=== PATIENT | female | born 1965 | race Caucasian/White ===

== ENCOUNTER 2016-06-28 08:21 | Emergency (ER) | payer BC ==
--- NOTE | 2016-06-28 08:42 | ED ---
Fall HPI - General Chief Complaint: Fall Stated Complaint: back pain Time Seen by Provider: 06/28/16 08:27 Source: patient Mode of arrival: EMS Limitations: no limitations - History of Present Illness Initial Comments: This patient is a 51-year-old woman who presents to be evaluated after she had had a fall. This occurred yesterday in the afternoon. The patient was carrying laundry down the stairs and tripped over a cat. She fell landing on the stairs and then slid down a number stairs. She is complaining of pain to the low back and right hip area. MD Complaint: fall -: hour(s) Place Fall Occurred: home Loss of Consciousness: none Symptoms Prior to Fall: none - Related Data Previous Rx's Medication Instructions Recorded Ibuprofen [Motrin] 600 mg PO Q8HR PRN #20 tab 06/28/16 Methocarbamol [Robaxin-750] 750 mg PO TID PRN #30 tablet 06/28/16 traMADol HCl [Ultram] 50 mg PO Q6H PRN #20 tab 06/28/16 Allergies Allergy/AdvReac Type Severity Reaction Status Date / Time Latex, Natural Rubber Allergy Anaphylaxis Verified 06/28/16 08:35 neomycin Allergy Unknown Verified 06/28/16 08:35 Penicillins Allergy Unknown Verified 06/28/16 08:35 Review of Systems ROS Statement: Those systems with pertinent positive or pertinent negative responses have been documented in the HPI. ROS Other: All systems not noted in ROS Statement are negative. Constitutional: Denies: fever, chills Eyes: Denies: vision change ENT: Denies: ear pain, hearing loss, epistaxis Respiratory: Denies: dyspnea Cardiovascular: Denies: chest pain, syncope Gastrointestinal: Denies: abdominal pain, vomiting Genitourinary: Denies: hematuria Musculoskeletal: Reports: as per HPI, back pain, arthralgia Neurological: Denies: headache, weakness, numbness Past Medical History Additional Past Medical History / Comment(s): migraines History of Any Multi-Drug Resistant Organisms: None Reported Additional Past Surgical History / Comment(s): c/s, deviated septum repair Past Psychological History: No Psychological Hx Reported Smoking Status: Current every day smoker Past Alcohol Use History: Rare Past Drug Use History: None Reported General Exam Limitations: no limitations General appearance: alert, in no apparent distress Head exam: Present: atraumatic, normocephalic Eye exam: Present: normal appearance. Absent: scleral icterus, conjunctival injection Neck exam: Present: normal inspection, full ROM. Absent: tenderness Respiratory exam: Present: normal lung sounds bilaterally. Absent: respiratory distress, wheezes, rales, rhonchi, stridor, chest wall tenderness Cardiovascular Exam: Present: regular rate, normal rhythm, normal heart sounds. Absent: systolic murmur, diastolic murmur, rubs, gallop GI/Abdominal exam: Present: soft. Absent: distended, tenderness, guarding, rebound Extremities exam: Present: tenderness, normal capillary refill. Absent: pedal edema, joint swelling, calf tenderness Neurological exam: Present: alert, oriented X3. Absent: motor sensory deficit Skin exam: Present: warm, dry, intact, normal color. Absent: rash Course Vital Signs 06/28/16 06/28/16 08:29 09:55 Temperature 97 F L 97.1 F L Pulse Rate 52 L 50 L Respiratory 16 16 Rate Blood Pressure 113/61 90/53 O2 Sat by Pulse 99 100 Oximetry Disposition Clinical Impression: Fall, Back injury, Lumbar radiculopathy Disposition: HOME SELF-CARE Condition: Fair Instructions: Lumbar Radiculopathy (ED) Prescriptions: Ibuprofen [Motrin] 600 mg PO Q8HR PRN #20 tab PRN Reason: Pain Methocarbamol [Robaxin-750] 750 mg PO TID PRN #30 tablet PRN Reason: pain traMADol HCl [Ultram] 50 mg PO Q6H PRN #20 tab PRN Reason: Pain Referrals: Josias Capps MD [Primary Care Provider] - 1-2 days Roderick Velasco DO [Doctor of Osteopathic Medicine] - 1-2 days
[2016-06-28 08:49] VITALS: RESP 16
--- NOTE | 2016-06-28 09:11 | XR ---
EXAMINATION TYPE: 5 views lumbar spine. AP view pelvis. 2 views right femur. DATE OF EXAM: 06/28/2016 9:03 AM COMPARISON: NONE HISTORY: 51-year-old female with pain after fall FINDINGS: Lumbar spine: Slight rightward truncal shift may be positional or due to muscle spasm. There are 5 lumbar-type vert ebral bodies. No pars interarticularis defect. Minimal disc interspace narrowing at L5-S1. Vertebral body heights are preserved and alignment is maintained. Pelvis: Mild degenerative spurring at both hips with relative preservation of hip joint space. No acute fract ure, subluxation, or dislocation. Right femur: No acute fracture identified. No significant soft tissue abnormality seen. IMPRESSION: 1. Lumbar spine: Some rightward truncal shift could be positional or due to muscle spasm. No vertebra l compression collapse or malalignment. 2. Pelvis: Mild degenerative spurring at the hips. No acute osseous abnormality seen. 3. Right femur: No acute osseous abnormality seen.
[2016-06-28 09:55] VITALS: BP 90/53; PULSE 50; TEMP 97.1
[2016-06-28] MEDS ORDERED: MORPHINE SULFATE 4 MG/ML SYRINGE IV STA (10:00)
[2016-06-28] MEDS ORDERED: traMADol 50 MG TAB PO STA (10:55)
== END 2016-06-28 12:04 | disposition home or self-care (01) ==
LOC: EC 08:21
DX: M54.16 Radiculopathy, lumbar region (principal); Z88.0 Allergy status to penicillin; Z88.1 Allergy status to other antibiotic agents; Z91.040 Latex allergy status; F17.200 Nicotine dependence, unspecified, uncomplicated; W01.198A Fall on same level from slipping, tripping and stumbling with subsequent striking against other object, initial encounter; Y93.E2 Activity, laundry
CPT/HCPCS: 96374; 99284; 72110; 72170; 73552; J2270

== ENCOUNTER → 2016-11-24 | Outpatient (CLI) | payer BC ==
--- NOTE | 2016-11-24 10:43 | USB ---
Reason for exam: follow-up at short interval from prior study. History: Patient had first child at age 36. Family history of breast cancer in maternal grandmother and breast cancer in paternal grandmother. Physical Findings: Nurse did not find any significant physical abnormalities on exam. US Breast LT Left breast ultrasound includes all four quadrants, the retroareolar region and axilla. Finding demonstrates a 8mm cystic lesion at 12 o'clock, a 4mm small cyst cluster at 8 o'clock and a 16 x 7 x 13mm cystic lesion at 11 o'clock, bilobed previously measuring 1.8 x 0.8 x 1.1cm, some echoes remain within one of the cystic components, debris is favored and this can be reassessed in 5 months. These results were verbally communicated with the patient and result sheet given to the patient on 11/24/16. ASSESSMENT: Probably benign, BI-RAD 3 RECOMMENDATION: Follow-up diagnostic mammogram of both breasts in 5 months. Ultrasound of the left breast in 5 months. Back on schedule for April 2017.
== END | disposition home or self-care (01) ==
LOC: RADUSWWP 09:51
PROVIDERS: ATTEND Obstetrics & Gynecology
DX: R92.8 Other abnormal and inconclusive findings on diagnostic imaging of breast (principal)

== ENCOUNTER → 2017-07-30 | Outpatient (CLI) | payer BC ==
--- NOTE | 2017-07-30 11:20 | MM ---
Reason for exam: additional evaluation requested from prior study. Last mammogram was performed 1 year and 3 months ago. History: Patient had first child at age 36. Family history of breast cancer in maternal grandmother and breast cancer in paternal grandmother. Physical Findings: Nurse Summary: 1 x 1cm nodule in the left breast at 12 o'clock (nurse ts). MG Diagnostic Mammo w CAD BARON Bilateral CC and MLO view(s) were taken. Prior study comparison: April 23, 2016, bilateral MG screening mammo w CAD. April 13, 2011, bilateral digital screening mammo w/CAD. The breast tissue is heterogeneously dense. This may lower the sensitivity of mammography. No suspicious calcifications are seen. Left breast mass seen previously has diminished in size. No significant new findings when compared with previous films. These results were verbally communicated with the patient and result sheet given to the patient on 07/30/17. ASSESSMENT: Incomplete: need additional imaging evaluation, BI-RAD 0 RECOMMENDATION: Ultrasound of the left breast.
--- NOTE | 2017-07-30 11:22 | USB ---
Reason for exam: additional evaluation requested from abnormal screening. History: Patient had first child at age 36. Family history of breast cancer in maternal grandmother and breast cancer in paternal grandmother. US Breast LT Left breast ultrasound includes all four quadrants, the retroareolar region and axilla. Finding demonstrates a 0.6 x 0.5 x 0.7cm cystic lesion at 12 o'clock, a 0.6 x 0.4 x 0.6cm cystic cluster at 8 o'clock, a 0.7 x 0.4 x 0.5cm possible node at 10 o'clock and a 1.2 x 0.7 x 1.5cm cystic cluster at 11 o'clock. These results were verbally communicated with the patient and result sheet given to the patient on 07/30/17. ASSESSMENT: Probably benign, BI-RAD 3 RECOMMENDATION: Ultrasound of the left breast in 6 months.
== END | disposition home or self-care (01) ==
LOC: RADMAMWWP 09:45
PROVIDERS: ATTEND Obstetrics & Gynecology
DX: R92.8 Other abnormal and inconclusive findings on diagnostic imaging of breast (principal)
CPT/HCPCS: 77066

== ENCOUNTER → 2018-06-08 | Outpatient (CLI) | payer BC ==
--- NOTE | 2018-06-09 09:00 | USB ---
Reason for exam: follow-up at short interval from prior study. History: Patient had first child at age 36. Family history of breast cancer in maternal grandmother and breast cancer in paternal grandmother. Physical Findings: Nurse Summary: bilateral nodularities, movable (nurse mj). US Breast LT Left complete breast ultrasound includes all four quadrants, the retroareolar region and axilla. Finding demonstrates a 6 x 6mm oval, cystic lesion at 12 o'clock, a 5 x 4 x 5mm cystic cluster at 8 o'clock, a 1.2 x 0.3 x 0.3cm cystic cluster at 10 o'clock and a 1.4 x 0.6 x 1.2cm cystic cluster at 11 o'clock. Multiple cystic areas visualized. Findings appear stable. These results were verbally communicated with the patient and result sheet given to the patient on 06/08/18. ASSESSMENT: Benign, BI-RAD 2 RECOMMENDATION: Routine screening mammogram of both breasts in 2 months. Back on schedule.
== END | disposition home or self-care (01) ==
LOC: RADUSWWP 15:34
PROVIDERS: ATTEND Obstetrics & Gynecology
DX: R92.8 Other abnormal and inconclusive findings on diagnostic imaging of breast (principal)

== ENCOUNTER → 2019-04-17 | Outpatient (CLI) | payer BC ==
--- NOTE | 2019-04-18 08:56 | MM ---
Reason for exam: screening (asymptomatic). Last mammogram was performed 1 year and 9 months ago. History: Patient had first child at age 36. Family history of breast cancer in maternal grandmother and breast cancer in paternal grandmother. Physical Findings: A clinical breast exam by your physician is recommended on an annual basis and results should be correlated with mammographic findings. MG Screening Mammo w CAD Bilateral CC and MLO view(s) were taken. Prior study comparison: July 30, 2017, bilateral MG diagnostic mammo w CAD [facility]. April 23, 2016, bilateral MG screening mammo w CAD. The breast tissue is heterogeneously dense. This may lower the sensitivity of mammography. There is no discrete abnormality. ASSESSMENT: Negative, BI-RAD 1 RECOMMENDATION: Routine screening mammogram of both breasts in 1 year.
== END | disposition home or self-care (01) ==
LOC: RADMAMWWP 16:39
PROVIDERS: ATTEND Obstetrics & Gynecology
DX: Z12.31 Encounter for screening mammogram for malignant neoplasm of breast (principal); Z80.3 Family history of malignant neoplasm of breast
CPT/HCPCS: 77067

== ENCOUNTER → 2021-01-21 | Outpatient (CLI) | payer BC ==
--- NOTE | 2021-01-23 12:25 | MM ---
Reason for exam: screening (asymptomatic). Last mammogram was performed 1 year and 9 months ago. History: Patient had first child at age 36. Family history of breast cancer in maternal grandmother and breast cancer in paternal grandmother. Taking estrogen. Taking progesterone. Physical Findings: A clinical breast exam by your physician is recommended on an annual basis and results should be correlated with mammographic findings. MG Screening Mammo w CAD Bilateral CC and MLO view(s) were taken. Prior study comparison: April 17, 2019, bilateral MG screening mammo w CAD. June 08, 2018, left breast US breast LT. July 30, 2017, bilateral MG diagnostic mammo w CAD [facility]. April 23, 2016, bilateral MG screening mammo w CAD. The breast tissue is heterogeneously dense. This may lower the sensitivity of mammography. Superior posterior right MLO asymmetric density is more defined. ASSESSMENT: Incomplete: need additional imaging evaluation, BI-RAD 0 RECOMMENDATION: Special view mammogram of the right breast. (3D) If lesion persists on supplemental views, image directed ultrasound is recommended. [facility] will attempt to contact patient to return for supplemental views and ultrasound if indicated.
== END | disposition home or self-care (01) ==
LOC: RADMAMWWP 16:44
PROVIDERS: ATTEND Obstetrics & Gynecology
DX: Z12.31 Encounter for screening mammogram for malignant neoplasm of breast (principal); Z80.3 Family history of malignant neoplasm of breast
CPT/HCPCS: 77067

== ENCOUNTER → 2021-01-27 | Outpatient (CLI) | payer BC ==
--- NOTE | 2021-01-27 09:51 | MM ---
Reason for exam: additional evaluation requested from abnormal screening. Last mammogram was performed less than 1 month ago. History: Patient had first child at age 36. Family history of breast cancer in maternal grandmother and breast cancer in paternal grandmother. Taking estrogen. Taking progesterone. Physical Findings: Nurse did not find any significant physical abnormalities on exam. MG Work Up Mamm w CAD RT Spot compression MLO, LM, XCCL, and XCCM view(s) were taken of the right breast. Prior study comparison: January 21, 2021, bilateral MG screening mammo w CAD. April 17, 2019, bilateral MG screening mammo w CAD. July 30, 2017, bilateral MG diagnostic mammo w CAD BARON. April 23, 2016, bilateral MG screening mammo w CAD. April 13, 2011, bilateral digital screening mammo w/CAD. The breast tissue is heterogeneously dense. This may lower the sensitivity of mammography. There is no discrete abnormality including area of concern on compression. These results were verbally communicated with the patient and result sheet given to the patient on 01/27/21. ASSESSMENT: Benign, BI-RAD 2 RECOMMENDATION: Return to routine screening mammogram schedule for both breasts.
== END | disposition home or self-care (01) ==
LOC: RADMAMWWP 09:10
PROVIDERS: ATTEND Obstetrics & Gynecology
DX: R92.2 Inconclusive mammogram (principal); Z80.3 Family history of malignant neoplasm of breast; Z79.818 Long term (current) use of other agents affecting estrogen receptors and estrogen levels
CPT/HCPCS: 77065

== ENCOUNTER 2021-02-05 10:36 | Day surgery (SDC) | payer BC ==
[2021-02-03 09:31] VITALS: BMI 23.8
[~2021-02-05 10:36] MED LIST: LACTATED RINGERS 1,000 ML IV SCH
[2021-02-05 11:17] VITALS: TEMP 97.1
[2021-02-05] MEDS ORDERED: PROPOFOL 10 MG/ML 20 ML VIAL IV ONE (12:14)
[2021-02-05] MEDS ORDERED: LIDOCAINE 1% INJ 10MG/ML (20 ML MDV) ONE (12:14)
--- NOTE | 2021-02-05 12:32 | P.PCN ---
Date of Procedure: 02/05/21 Procedure(s) Performed: BRIEF HISTORY: Patient is a 55-year-old pleasant white female scheduled for an elective colonoscopy as a part of positive cologuard PROCEDURE PERFORMED: Colonoscopy snare polypectomy. PREOPERATIVE DIAGNOSIS: Positive cologuard IV sedation per Anesthesia. PROCEDURE: After informed consent was obtained, the patient, was brought into the endoscopy unit. IV sedation was administered by Anesthesia under continuous monitoring. Digital rectal examination was normal. Initially the Olympus CF-160 flexible video colonoscope was then inserted in the rectum, gradually advanced into the cecum without any difficulty. Careful examination was performed as the scope was gradually being withdrawn. Ileocecal valve and the appendiceal orifice were visualized and appeared normal. Prep was excellent. Mucosa of the cecum, ascending colon, transverse colon, descending colon, appeared normal. The sigmoid colon there was a 7-8 mm polyp that was removed by snare polypectomy. Rest of the sigmoid colon, and rectum appeared normal. Retroflexion was performed in the rectum and no lesions were seen. The patient tolerated the procedure well. IMPRESSION: 7-8 mm; sigmoid polyp status post polypectomy Rest of the colon appeared normal RECOMMENDATIONS: Findings of this examination were discussed with the patientas well as a family. She was advised to follow with the biopsy results. If the biopsy results adenoma she can have a repeat colonoscopy in 5 years.].
[2021-02-05 12:50] VITALS: RESP 16
[2021-02-05 13:33] VITALS: BP 122/78; PULSE 55
== END 2021-02-05 13:33 | disposition home or self-care (01) ==
LOC: ORWHC2ENDO 10:36
PROVIDERS: ATTEND Internal Medicine Gastroenterology
DX: Z12.11 Encounter for screening for malignant neoplasm of colon (principal); D12.5 Benign neoplasm of sigmoid colon; Z88.0 Allergy status to penicillin; Z79.82 Long term (current) use of aspirin; Z79.899 Other long term (current) drug therapy
CPT/HCPCS: 45385; 81025; 88305; J2001; J2704

== ENCOUNTER → 2021-03-06 | Outpatient (CLI) | payer BC ==
[2021-03-06 15:54] LABS: Basophils % (A) 1 %; Eosinophils # (A) 0.2 k/uL (0-0.7); Eosinophils % (A) 2 %; HCT 44.5 % (34.0-46.0); HGB 14.5 gm/dL (11.4-16.0); Lymphocytes # (A) 1.7 k/uL (1.0-4.8); Lymphocytes % (A) 21 %; MCHC 32.5 g/dL (31.0-37.0); MCV 98.5 fL (80.0-100.0); Mean Platelet Volume 7.6; Monocytes # (A) 0.4 k/uL (0-1.0); Monocytes % (A) 5 %; Neutrophils # (A) 5.7 k/uL (1.3-7.7); Neutrophils % (A) 70 %; Platelet Count 206 k/uL (150-450); RBC 4.52 m/uL (3.80-5.40); RDW 11.7 % (11.5-15.5); WBC 8.2 k/uL (3.8-10.6)
== END | disposition home or self-care (01) ==
LOC: LABPAT 15:27
PROVIDERS: ATTEND Obstetrics & Gynecology
DX: Z01.812 Encounter for preprocedural laboratory examination (principal); N84.0 Polyp of corpus uteri
CPT/HCPCS: 36415; 85025

== ENCOUNTER 2021-03-17 09:14 | Day surgery (SDC) | payer BC ==
[2021-03-13 16:29] VITALS: BMI 23.9
[~2021-03-17 09:14] MED LIST changes: +DEXAMETHASONE SOD PHOSPHATE 4 MG/ML 1 ML VIAL IV ONE; +HYDROmorphone 0.5 MG/0.5 ML SYRINGE IVP PRN; +MIDAZOLAM 2 MG/2 ML VIAL IV PRN; +ONDANSETRON 4 MG/2 ML VIAL IVP ONE; +Pre Op ABX Message 1 EACH MISC MISCELLANE ONE; +SCOPOLAMINE 1.5MG/72HR PATCH TRANSDERM ONE
[2021-03-17] MEDS ORDERED: LACTATED RINGERS 1,000 ML IV ONE (09:47)
[2021-03-17] MEDS ORDERED: LIDOCAINE 1% INJ 10MG/ML (20 ML MDV) ONE (11:10)
[2021-03-17] MEDS ORDERED: fentaNYL (PF) 50 MCG/ML 2 ML AMP ONE (11:10)
[2021-03-17] MEDS ORDERED: KETOROLAC 15 MG/ML 1 ML VIAL ONE (11:10)
[2021-03-17] MEDS ORDERED: MIDAZOLAM 2 MG/2 ML VIAL ONE (11:10)
[2021-03-17] MEDS ORDERED: PROPOFOL 10 MG/ML 20 ML VIAL IV ONE (11:10)
--- NOTE | 2021-03-17 11:42 | P.OP ---
Date of Procedure: 03/17/21 Preoperative Diagnosis: Sonographic evidence of endometrial polyps Postoperative Diagnosis: Essentially negative appearing cavity with suggestion of small fundal polyp versus fibroid Procedure(s) Performed: Hysteroscopy, D&C, polypectomy Anesthesia: VASYL Surgeon: Rachel Nolan Estimated Blood Loss (ml): 10 IV fluids (ml): 100 Urine output (ml): 100 Pathology: other (Endometrial curettings and polypoid appearing tissue) Condition: stable Disposition: PACU Operative Findings: The cavity appeared essentially negative, with the suggestion of a solitary small fundal polyp versus fibroid. Description of Procedure: Patient is brought to the operating suite where a general anesthetic is administered without difficulty. She's placed in the dorsal lithotomy position. The cervix, vagina, perineal bodies are all prepped and draped in usual sterile fashion. The appropriate timeout is performed to assure proper patient and procedural identification. The bladder is drained for approximately 100 mL of c lear yellow urine. Antibiotics are not deemed necessary. Examination under anesthesia reveals a small anteverted uterus, negative adnexa bilaterally. The anterior lip of the cervix is grasped gently with a double-tooth tenaculum after the placement of a speculum. Uterus sounds to a depth of 8 cm in the anteverted position. The cervix is gently and systematically dilated using Hanks dilators. The hysteroscope was placed and the cavity is infused with sterile saline. The cavity appears essentially negative, there is a suggestion of a small polypoid versus fibroid lesions at the fundus. Hysteroscope was removed. The cavity is gently and systematically curettaged with a medium sharp curette. A small polypoid piece of tissue is obtained and sent to pathology. Hysteroscope is then placed and the cavity appears completely clear. All instrumentation is removed from the vagina. Cervix is clean and dry. All sponge needle and instrument counts are correct. Patient is brought back to recovery room in very good condition with stable vital signs including blood pressure 123/75, pulse 60, 100% O2 saturation. Patient is given Toradol prior to leaving the operative suite. She will follow-up with me in the office in 2 weeks.
[2021-03-17 11:51] VITALS: TEMP 97.1
[2021-03-17 12:32] VITALS: RESP 16
[2021-03-17 13:20] VITALS: BP 110/69; PULSE 71
== END 2021-03-17 13:20 | disposition home or self-care (01) ==
LOC: OR 09:14
PROVIDERS: ATTEND Obstetrics & Gynecology
DX: N84.0 Polyp of corpus uteri (principal)
CPT/HCPCS: 58558; 81025; 88305; J2250; J1100; J2405; J2001; J3010; J1885; J2704

== ENCOUNTER → 2022-04-22 | Outpatient (CLI) | payer BC ==
--- NOTE | 2022-04-23 19:17 | MM ---
Reason for Exam: Screening (asymptomatic). Last mammogram was performed 1 year(s) and 3 month(s) ago. Patient History: Menarche at age 14. First Full-Term at age 36. Late child-bearing (after 30). Postmenopausal. Currently using Estrogen. Currently using Progesterone. Paternal grandmother had breast cancer. Maternal grandmother had breast cancer. Maternal cousin had breast cancer. Risk Values: Katia 5 year model risk: 1.6%. NCI Lifetime model risk: 11.2%. Prior Study Comparison: 04/17/2019 Bilateral Screening Mammogram, [facility]. 01/21/2021 Bilateral Screening Mammogram, [facility]. 01/27/2021 Right Diagnostic Mammogram, [facility]. Tissue Density: The breast tissue is heterogeneously dense. This may lower the sensitivity of mammography. Findings: Analyzed By CAD. New nodularity central left breast at a middle to posterior depth. However, when correlating with 12/21/2015 exam, a larger mass was present here. Suspect a fluctuating cyst. Short interval follow-up recommended to reassess. Otherwise, no significant change from prior exams. Overall Assessment: Probably benign, BI-RAD 3 Management: Diagnostic Mammogram of the left breast in 6 months. 1. Patient should continue monthly self breast exams. 2. A clinical breast exam by your physician is recommended on an annual basis. 3. This exam should not preclude additional follow-up of suspicious palpable abnormalities. Electronically signed and approved by: Sada Acosta M.D. Radiologist
== END | disposition home or self-care (01) ==
LOC: RADMAMWWP 16:32
PROVIDERS: ATTEND Obstetrics & Gynecology
DX: Z12.31 Encounter for screening mammogram for malignant neoplasm of breast (principal); Z78.0 Asymptomatic menopausal state; Z80.3 Family history of malignant neoplasm of breast
CPT/HCPCS: 77063; 77067

== ENCOUNTER → 2022-12-25 | Outpatient (CLI) | payer BC ==
--- NOTE | 2022-12-25 13:18 | MM ---
Reason for Exam: Follow-up at short interval from prior study. Last screening mammogram was performed 8 month(s) ago. Patient History: Menarche at age 14. First Full-Term at age 36. Late child-bearing (after 30). Hysterectomy at age 36. Postmenopausal. Currently using Estrogen. Currently using Progesterone. Paternal grandmother had breast cancer. Maternal grandmother had breast cancer. Maternal cousin had breast cancer. Risk Values: Katia 5 year model risk: 1.6%. NCI Lifetime model risk: 11.2%. Prior Study Comparison: 01/21/2021 Bilateral Screening Mammogram, [facility]. 01/27/2021 Right Diagnostic Mammogram, [facility]. 04/22/2022 Bilateral MG 3D screening mammo w/cad, [facility]. Tissue Density: Left: There are scattered fibroglandular densities. Findings: Analyzed By CAD. Left breast cyst appears stable and/or decreased in size compared to prior. No new suspicious masses, calcifications or distortions. Overall Assessment: Benign, BI-RAD 2 Management: Screening Mammogram of both breasts in 1 year. Results were given to the patient verbally at the time of exam. Patient should continue monthly self-breast exams. A clinical breast exam by your physician is recommended on an annual basis. This exam should not preclude additional follow-up of suspicious palpable abnormalities. Note on Katia scores and lifetime risk: 1. A Katia score greater than 3% is considered moderate risk. If this is the case, consider specialist referral to assess eligibility for a risk reducing agent. 2. If overall lifetime risk for the development of breast cancer is 20% or higher, the patient may qualify for future screening with alternating mammogram and breast MRI. Electronically signed and approved by: Devonte Gómez DO
== END | disposition home or self-care (01) ==
LOC: RADMAMWWP 11:07
PROVIDERS: ATTEND Obstetrics & Gynecology
DX: R92.8 Other abnormal and inconclusive findings on diagnostic imaging of breast (principal); Z78.0 Asymptomatic menopausal state; Z80.3 Family history of malignant neoplasm of breast
CPT/HCPCS: 77061; 77065

== ENCOUNTER → 2023-08-17 | Outpatient (CLI) | payer BC ==
--- NOTE | 2023-08-19 08:50 | MM ---
Reason for Exam: Screening (asymptomatic). Last mammogram was performed 1 year(s) and 4 month(s) ago. Patient History: Menarche at age 14. First Full-Term at age 36. Late child-bearing (after 30). Hysterectomy at age 36. Postmenopausal. Patient used Estrogen for 1 year. Patient used Progesterone for 1 year. Paternal grandmother had breast cancer. Maternal grandmother had breast cancer, age 60. Maternal cousin had breast cancer, age 45. Risk Values: Katia 5 year model risk: 1.7%. NCI Lifetime model risk: 10.9%. Prior Study Comparison: 01/27/2021 Right Diagnostic Mammogram, [facility]. 04/22/2022 Bilateral MG 3D screening mammo w/cad, [facility]. 12/25/2022 Left MG 3D diag mammo w/cad LT, [facility]. Tissue Density: There are scattered areas of fibroglandular density. Findings: Analyzed By CAD. Right breast: There is no suspicious group of microcalcifications or new suspicious mass. Left breast: There is no suspicious group of microcalcifications or new suspicious mass. Overall Assessment: Negative, BI-RAD 1 Management: Screening Mammogram of both breasts in [address] [facility] will attempt to contact patient to return for supplemental views and ultrasound if indicated. Patient should continue monthly self-breast exams. A clinical breast exam by your physician is recommended on an annual basis. This exam should not preclude additional follow-up of suspicious palpable abnormalities. Note on Katia scores and lifetime risk: 1. A Katia score greater than 3% is considered moderate risk. If this is the case, consider specialist referral to assess eligibility for a risk reducing agent. 2. If overall lifetime risk for the development of breast cancer is 20% or higher, the patient may qualify for future screening with alternating mammogram and breast MRI. Electronically signed and approved by: Devonte Gómez DO
== END | disposition home or self-care (01) ==
LOC: RADMAMWWP 16:31
PROVIDERS: ATTEND Family Medicine
DX: Z12.31 Encounter for screening mammogram for malignant neoplasm of breast (principal); Z80.3 Family history of malignant neoplasm of breast; Z78.0 Asymptomatic menopausal state
CPT/HCPCS: 77063; 77067

== ENCOUNTER → 2024-07-20 | Outpatient (CLI) | payer BC ==
--- NOTE | 2024-07-20 17:07 | XR ---
EXAMINATION TYPE: XR shoulder complete RT DATE OF EXAM: 07/20/2024 CLINICAL HISTORY: pain TECHNIQUE: Three views of the right shoulder are obtained. COMPARISON: None FINDINGS: There is no acute fracture/dislocation evident. The acromioclavicular and glenohumeral eloina int spaces appear within normal limits. The visualized ribs are intact and unremarkable. IMPRESSION: 1. There is no acute fracture or dislocation. ICD 10 NO FRACTURE, INITIAL EVALUATION [facility], , 07/20/2024 5:05 PM
== END | disposition home or self-care (01) ==
LOC: RADXRMAIN 16:30
PROVIDERS: ATTEND Family Medicine
DX: M25.511 Pain in right shoulder (principal)

== ENCOUNTER → 2024-07-27 | Outpatient (CLI) | payer BC ==
--- NOTE | 2024-07-28 08:20 | US ---
EXAMINATION TYPE: US pelvis complete transvag DATE OF EXAM: 07/27/2024 COMPARISON: NONE CLINICAL INDICATION: Female, 59 years old with history of R19.09 OTHER INTRA-ABDOMINAL AND PELVIC SWE LLING,; order says pelvic masses posterior to cervix or ?stool. Hx 1 C section, 2 miscarriages, 1 abo rtion. TECHNIQUE: Transvaginal (TV) and Transabdominal (TA) . Transabdominal grayscale sonographic images of the pelvis were acquired. Transvaginal sonographic im ages were medically necessary to better assess the following anatomy: per order. Doppler imaging: Not performed. FINDINGS: Date of LMP: Couple years ago EXAM MEASUREMENTS: Uterus: 7.0 x 4.0 x 3.8 cm Endometrial Stripe: 0.26 cm Right Ovary: 2.5 x 1.5 x 1.4 cm Left Ovary: 1.8 x 1.1 x 1.3 cm 1. Uterus: Anteverted Very heterogeneous. Subcentimeter anechoic area in cervix. Tiny hyperechoi c foci seen lower uterus. Hypoechoic area seen right uterus: 1.5 x 1.2 x 1.0 cm. 2. Endometrium: 0.26 3. Right Ovary: wnl 4. Left Ovary: 0.8 cm anechoic area seen 5. Bilateral Adnexa: No abnormalities seen 6. Posterior cul-de-sac: Appears wnl Heterogeneous anteverted uterus. There is 5 mm nabothian cyst in the cervix. There is suspected 1.2 c m small fibroid in the right aspect of uterus. No suspicious thickening of the endometrial stripe for postmenopausal female. No free fluid. Symmetric small size ovaries correlate with patient's age. There is incidental 8 mm thin-walled cyst in the right ovary felt present. IMPRESSION: No ascites. No suspicious pelvic masses. Suspect small intrauterine fibroid. O-RADS 2021 [email or web address] [facility], , 07/28/2024 8:18 AM
== END | disposition home or self-care (01) ==
LOC: RADUSWWP 16:23
PROVIDERS: ATTEND Obstetrics & Gynecology
DX: N83.291 Other ovarian cyst, right side (principal); N85.4 Malposition of uterus; R19.09 Other intra-abdominal and pelvic swelling, mass and lump; R68.89 Other general symptoms and signs
CPT/HCPCS: 76830; 76856

== ENCOUNTER 2024-10-13 07:13 | Day surgery (SDC) | payer BC ==
[~2024-10-13 07:13] MED LIST changes: -DEXAMETHASONE SOD PHOSPHATE 4 MG/ML 1 ML VIAL IV ONE; -LACTATED RINGERS 1,000 ML IV SCH; +LIDOCAINE 1% (10MG/ML) FOR IV START INTRADERMA PRN; -ONDANSETRON 4 MG/2 ML VIAL IVP ONE; -SCOPOLAMINE 1.5MG/72HR PATCH TRANSDERM ONE; +fentaNYL (PF) 50 MCG/ML 2 ML AMP IVP PRN
[2024-10-13] MEDS: IV FLUID CONTINUATION 1,000 ML IV ONE (07:50)
[2024-10-13] MEDS: LACTATED RINGERS 1,000 ML IV SCH (07:52)
[2024-10-13] MEDS: ACETAMINOPHEN TAB 500 MG TAB PO PRN (07:59)
[2024-10-13] MEDS: DEXAMETHASONE SOD PHOSPHATE 4 MG/ML 1 ML VIAL IV ONE (08:00)
[2024-10-13] MEDS: ONDANSETRON 4 MG/2 ML VIAL IVP ONE (08:00)
[2024-10-13] MEDS: HEPARIN SODIUM,PORCINE 5,000 UNIT/ML 1 ML VIAL SQ PRN (08:01)
[2024-10-13] MEDS: SCOPOLAMINE 1 MG/72 HR PATCH TRANSDERM STA (08:03)
--- NOTE | 2024-10-13 08:27 | P.GSHP ---
History of Present Illness H&P Date: 10/13/24 Chief Complaint: Sebaceous cyst, perianal skin lesion 59-year-old female seen in the office 1 month ago. Patient has a symptomatic enlarging sebaceous cyst right chest wall. Mild soreness. No drainage. Patient also with a small perianal skin lesion present for the last year or so. Past Medical History Additional Past Medical History / Comment(s): migraines, environmental allergies, uterine polyp History of Any Multi-Drug Resistant Organisms: None Reported Past Surgical History: Section, Hernia Repair Additional Past Surgical History / Comment(s): deviated septum repair, COLONOSCOPY, RT WRIST SX FOR TENDONITIS, BILAT EYE LASIK SX. hysteroscopy D&C. Colonoscopy 2021. Rt. ingunial hernia repair as child Past Anesthesia/Blood Transfusion Reactions: Motion Sickness Additional Past Anesthesia/Blood Transfusion Reaction / Comment(s): "slow to wake up" Smoking Status: Former smoker - Past Family History Father Family Medical History: Cancer Additional Family Medical History / Comment(s): Liver cancer. . Paternal grandmother had breast cancer. Mother Family Medical History: Diabetes Mellitus Additional Family Medical History / Comment(s): Maternal and Paternal grandmothers had breast cancer. Medications and Allergies Home Medications Medication Instructions Recorded Confirmed Type Aspirin/Acetaminophen/Caffeine 2 each PO BID PRN 02/03/21 10/11/24 History [Excedrin Migraine Caplet] Loratadine [Claritin] 10 mg PO DAILY 02/03/21 10/13/24 History ALPRAZolam [Xanax] 0.25 mg PO Q8HR PRN 02/04/21 10/13/24 History diphenhydrAMINE [Benadryl] 25 mg PO HS PRN 02/04/21 10/13/24 History Escitalopram [Lexapro] 5 mg PO DAILY 06/20/24 10/13/24 History Fluticasone Nasal [place] [Flonase 1 spray NASAL DAILY 06/20/24 10/13/24 History Nasal [place]] Allergies Allergy/AdvReac Type Severity Reaction Status Date / Time Latex, Natural Rubber Allergy Rash/Hives Verified 10/13/24 07:38 neomycin Allergy Rash/Hives Verified 10/13/24 07:38 nickel Allergy Rash/Hives Verified 10/13/24 07:38 Penicillins Allergy Rash/Hives Verified 10/13/24 07:38 Surgical - Exam Vital Signs Temp Pulse Resp BP Pulse Ox 97.9 F 60 18 130/88 99 10/13/24 07:50 10/13/24 07:50 10/13/24 07:50 10/13/24 07:50 10/13/24 07:50 Physical exam: General: Well-developed, well-nourished HEENT: Normocephalic, sclerae nonicteric Abdomen: Nontender, nondistended Extremities: No edema Neuro: Alert and oriented Chest: Right parasternal chest wall with 1 to 1.5 cm sebaceous cyst mildly tender Rectal: Left perianal skin lesion 1.2 cm Assessment and Plan (1) Sebaceous cyst Narrative/Plan: 59-year-old female with sebaceous cyst chest wall and perianal skin lesion. Will proceed with excision of both locations. Risk of bleeding, infection, poor healing, scarring, recurrence reviewed. She understands and wishes to proceed. Current Visit: Yes Status: Acute Code(s): L72.3 - SEBACEOUS CYST SNOMED Code(s): 611293384
[2024-10-13] MEDS ORDERED: KETAMINE HCL IN 0.9 % NACL 50 MG/5 ML SYRINGE ONE (08:34)
[2024-10-13] MEDS ORDERED: KETOROLAC 15 MG/ML 1 ML VIAL ONE (08:34)
[2024-10-13] MEDS ORDERED: PROPOFOL 10 MG/ML 20 ML VIAL IV ONE (08:34)
[2024-10-13] MEDS ORDERED: GLYCOPYRROLATE 0.2 MG/ML 2 ML VIAL ONE (08:34)
[2024-10-13] MEDS ORDERED: fentaNYL (PF) 50 MCG/ML 2 ML AMP ONE (08:34)
[2024-10-13] MEDS ORDERED: MIDAZOLAM 2 MG/2 ML VIAL ONE (08:34)
[2024-10-13] MEDS ORDERED: diphenhydrAMINE 50 MG/ML 1 ML VIAL ONE (08:34)
[2024-10-13] MEDS: BUPIVACAINE (PF) 0.5% 30 ML VIAL SQ ONE ×2 (09:03)
[2024-10-13] MEDS ORDERED: NALOXONE 0.4 MG/ML 1 ML VIAL IV PRN (09:29)
--- NOTE | 2024-10-13 09:32 | P.OP ---
Date of Procedure: 10/13/24 Procedure(s) Performed: PREOPERATIVE DIAGNOSIS: Chest wall sebaceous cyst, perianal skin lesion POSTOPERATIVE DIAGNOSIS: Same PROCEDURE: Excision chest wall sebaceous cyst, excision perianal skin lesion/tag SURGEON: Brennan EBL: 5 cc ANESTHESIA: Sedation and local COMPLICATIONS: None OPERATIVE PROCEDURE: Patient Supine initially. Chest was prepped and draped sterilely. Small horizontal elliptical incision made overlying the sebaceous cyst. Cyst was excised sharply fully intact. This measured 6 mm. 2 separate 5-0 nylon sutures were used to reapproximate the skin there. Sterile dressings applied. Next the perianal skin lesion was addressed. This was in the left lateral location. This was oblong but 1.5 cm in length. This was excised sharply. The skin incision was closed using a short running 4-0 Vicryl suture. Sterile gauze was applied. DISPOSITION: Stable to recovery room
[2024-10-13 09:37] VITALS: TEMP 97
[2024-10-13 10:43] VITALS: RESP 16
[2024-10-13 11:18] VITALS: BP 121/68; PULSE 65
== END 2024-10-13 11:19 | disposition home or self-care (01) ==
LOC: OR 07:13
PROVIDERS: ATTEND Surgery
DX: L72.3 Sebaceous cyst (principal); K64.4 Residual hemorrhoidal skin tags; K62.82 Dysplasia of anus; F32.A Depression, unspecified; F41.9 Anxiety disorder, unspecified; G43.909 Migraine, unspecified, not intractable, without status migrainosus; Z87.891 Personal history of nicotine dependence; Z80.0 Family history of malignant neoplasm of digestive organs; Z80.3 Family history of malignant neoplasm of breast; Z83.3 Family history of diabetes mellitus; Z98.890 Other specified postprocedural states; Z91.040 Latex allergy status; Z88.0 Allergy status to penicillin; Z79.82 Long term (current) use of aspirin; Z79.899 Other long term (current) drug therapy
CPT/HCPCS: 88304; 88305; 88342; 11402; 46220; J2250; J1200; J1644; J1100; J2405; J3010; J1885; J2704; J0665; J1596